=== PATIENT | female | born 1975 | race Native Hawaiian/Other Pacific Islander ===

== ENCOUNTER 2020-12-08 13:31 | Emergency (ER) | payer OTHER ==
[~2020-12-08] VITALS: Ht 165.1 cm; Wt 106.1 kg
[2020-12-08 14:49] LABS: PLATELET COUNT 358 K/uL (152-353)
[2020-12-08 14:55] LABS: POTASSIUM 4.1 mmol/L (3.6-5.2)
[2020-12-08 16:34] VITALS: BP 102/78
== END 2020-12-08 16:34 | disposition home or self-care (01) ==
LOC: ED 13:31
PROVIDERS: Family Medicine
DX: N39.0 Urinary tract infection, site not specified (principal); K59.09 Other constipation
CPT/HCPCS: 80053; 81000; 85027; 87077; 87086; 87088; 87186; 99283

== ENCOUNTER 2021-10-08 22:58 | Emergency (ER) | payer OTHER ==
[~2021-10-08] VITALS: Ht 165.1 cm; Wt 106.1 kg
[2021-10-08 23:57] LABS: POTASSIUM 3.9 mmol/L (3.6-5.2)
[2021-10-09 00:03] LABS: PLATELET COUNT 301 K/uL (152-353)
[2021-10-09 01:59] VITALS: BP 148/70; TEMP 97.2
== END 2021-10-09 01:59 | disposition home health service (06) ==
LOC: ED 22:58
PROVIDERS: Emergency Medicine
DX: R07.89 Other chest pain (principal); Z53.29 Procedure and treatment not carried out because of patient's decision for other reasons
CPT/HCPCS: 36415; 80053; 81000; 84484; 85027; 85610; 87086; 87088; 93005; 96372; 99283; J1650

== ENCOUNTER 2022-03-07 11:51 | Emergency (ER) | payer OTHER ==
[~2022-03-07] VITALS: Ht 165.1 cm; Wt 106.1 kg
[2022-03-07 12:52] LABS: PLATELET COUNT 578 K/uL (152-353)
[2022-03-07 13:02] LABS: POTASSIUM 4.3 mmol/L (3.6-5.2)
[2022-03-07 15:22] VITALS: BP 172/103; TEMP 96.7
== END 2022-03-07 15:22 | disposition home or self-care (01) ==
LOC: ED 11:51
PROVIDERS: Emergency Medicine Emergency Medical Services
DX: K80.00 Calculus of gallbladder with acute cholecystitis without obstruction (principal)
CPT/HCPCS: 36415; 80053; 81002; 82150; 83690; 85027; 96360; 96361; 96374; 96375; 99284; J0360; J2270; J2405; Q9963